=== PATIENT | female | born 1950 | race Caucasian/White ===

== ENCOUNTER → 2019-09-22 12:26 | Outpatient (CLI) | payer MEDICARE, SELFPAY ==
--- NOTE | ~2019-09-22 | XR_ITS ---
XR_CERV2-3V_CR DATE: 09/22/2019 12:42 INDICATION: Neck pain. No injury. TECHNIQUE: AP, open-mouth, odontoid, lateral views COMPARISON: None FINDINGS: There is straightening of the cervical spine. C1 and C2 are normally aligned and the odonto id process is intact. No fracture or dislocation or locked facet. No prevertebral soft tissue swelling. There is mild to moderate degenerative disc disease at approximately 1.4 mm anterolisthesis at C4-5. There is moderate to moderately severe degenerative disease at C5-6 and C6-7. There is uncovertebral joint spurring at C5-6 and C6-7. Degenerative changes are noted at the apophys eal joints. IMPRESSION: Cervical spondylosis Reviewed, dictated and finalized at [facility]. Reviewed, dictated and finalized at location [facility]. S HAND SEWER IMPRESSION: Cervical spondylosis
== END ==
PROVIDERS: PCP Family Medicine; Visit Provider Family Medicine
DX: M47.892 Other spondylosis, cervical region (principal)
CPT/HCPCS: 72040

== ENCOUNTER 2021-09-15 06:01 | Emergency (ER) | payer MEDICARE, SELFPAY ==
--- NOTE | ~2021-09-15 | CT_ITS ---
EXAMINATION: CTA chest PE protocol DATE: 09/15/2021 09:14 INDICATION: Shortness of breath. TECHNIQUE: Computed tomography angiography (CTA) of the chest was performed with 100 mL Omnipaque-350 intravenous contrast timed to evaluate the pulmonary arteries. Coronal maximum intensity projection 3D-reconstructions were created by the technologist. Automated exposure control and iterative reconst ruction technique were employed. The dose-length product was 183.17 mGy-cm. COMPARISON: None. FINDINGS: There is mild scarring at right lung apex. There is mild atelectasis bilaterally. No pleura l effusion. The heart size is normal. There are coronary artery calcifications. No pericardial effusi on. There is no pulmonary embolus. There is a small sliding hiatal hernia. There is a 10 mm low-atten uation mass in the peripheral spleen, likely benign. There is mild thoracic spondylosis. IMPRESSION: 1. No pulmonary embolus. Reviewed, dictated and finalized at location [facility]. TECHNICIAN IMPRESSION: 1. No pulmonary embolus.
[2021-09-15 06:18] VITALS: BP 171/70; PULSE 77; RESP 18; TEMP 36.4; O2SAT 100
--- NOTE | 2021-09-15 06:30 | PC.NURSE ---
Pt much more settled at this time. at bedside. Pt blood preasure 145/93 HR 54. ERMD in to see.
--- NOTE | 2021-09-15 06:45 | ED.ANXIETY ---
HPI - Anxiety General Chief Complaint: Anxiety Stated Complaint: Allergic Reaction to Cancer Drug Source: patient, family and RN notes reviewed Mode of arrival: ambulatory Limitations: no limitations History of Present Illness HPI narrative: Patient states that she woke up middle the night very anxious feeling short of breath tremor in all over. states that she had a pain in her back between her shoulder blades that he massaged but she cleaned it went down her left arm. He says that went away and she fell back asleep and then woke up at 3:00 a.m. with worsening tremors shaking short of breath in a panic. complaint: anxiety, heart racing and shortness of breath Onset (ago): hour(s) (4) Symptoms: dyspnea and palpitations Severity: severe Quality: improving Place: home History of similar episodes: No Provoking factors: medication change (recent osteopenia infusion) Relieving factors: rest Exacerbating factors: nothing Associated symptoms: weakness Related Data Home Medications Medication Instructions Recorded Confirmed calcium carbonate 600 mg-vitamin 1 tablet PO DAILY 07/10/19 09/15/21 D3 20 mcg (800 unit) chewable tablet lysine 500 mg tablet 500 mg PO DAILY 07/10/19 09/15/21 multivit with min-folic 1 tablet PO DAILY 07/10/19 09/15/21 acid-lutein 400 mcg-250 mcg chewable tablet Allergies Allergy/AdvReac Type Severity Reaction Status Date / Time No Known Allergies Allergy Verified 04/05/21 10:17 Review of Systems Review of Systems: All systems reviewed & are unremarkable except as noted in HPI and below Constitutional: Constitutional: Reports weakness Eyes: Eyes: Reports change in vision (not new) Cardiovascular: Cardiovascular: Reports as per HPI Gastrointestinal: Gastrointestinal: Denies nausea and Denies vomiting [facility] Past Medical History Medical History Fracture, patella 2009 Hearing problem Injury, knee Internal hemorrhoids 2012 Invasive ductal carcinoma of breast Osteopenia after menopause Surgical History Surgical History H/O: hysterectomy Total History of partial mastectomy of right breast Family History Family History Sibling Diabetes mellitus Family history of glaucoma Family history of elevated blood lipids Carcinoma of colon Mother Hypertension Family history of Alzheimer's disease Family history of dementia Father Family history of emphysema Other Family history of hypercholesterolemia Family history of mental disorder Malignant neoplasm of prostate Social History Social History (Updated 09/15/21 @ 07:15 by Joselito Snyder MD) Alcohol intake: current Alcohol use details: Occasional Exam Const: General: no acute distress, alert and ill appearing chronically Nutritional Appearance: well nourished and thin Orientation/consciousness: patient oriented x3 HENMT: Head: normal to inspection Ears: external ears normal Face and sinus: normal facial exam Mouth: Yes moist mucous membranes Eyes: Conjunctivae: conjunctivae normal Pupils: Equal, round and reactive pupils present EOM: EOMs intact bilaterally Neck: Neck: normal visual inspection Chest: Chest palpation & inspection: normal inspection of the chest Resp: Effort & Inspection: normal respiratory effort Auscultation: clear to auscultation bilaterally Cardio: Rate: regular rate Rhythm: regular rhythm GI: GI Palp: Yes Soft to palpation and No Tenderness to palpation present (GI) Auscultation: normal bowel sounds Back/Spine/Pelvis: Cervical Spine: cervical ROM normal Thoracic/Lumbar Spine: thoraco-lumbar ROM normal Skin: General skin exam: normal color Rashes: no rashes Neuro: General: patient oriented x3, moves all extremities, no meningeal signs, no focal motor deficits and CN's I
--- NOTE | 2021-09-15 07:04 | PC.NURSE ---
Report to Nurse Colby. Pt remains improved.
--- NOTE | 2021-09-15 07:30 | ECG_ITS ---
Measurements Intervals Watson Rate: 54 P: 100 NM: 146 QRS: 77 QRSD: 98 T: 76 QT: 471 QTc: 449 Interpretive Statements SINUS BRADYCARDIA INCOMPLETE RIGHT BUNDLE BRANCH BLOCK BORDERLINE ECG Electronically Signed On 09-15-2021 8:01:31 UPHOLSTERY TECH by Yonathan Morales D.O.
[2021-09-15 07:47] LABS: Basophils Absolute Auto 0.02 K/mm3 (0.00-0.10); Basophils Percent Auto 0.4 % (0.0-1.0); Eosinophils Absolute Auto 0.21 K/mm3 (0.02-0.50); Eosinophils Percent Auto 4.7 % (1.0-6.0); Hematocrit 39.3 % (35.0-42.0); Hemoglobin 12.7 g/dL (11.7-13.8); Immature Granulocyte Absolute 0.01 K/mm3 (0.00-0.00); Immature Granulocyte Percent A 0.2 % (0.0-0.0); Immature Platelet Fraction Pct 7.1 % (1.0-7.0); Lymphocytes Absolute Auto 1.14 K/mm3 (1.10-4.50); Lymphocytes Percent Auto 25.6 % (18.0-42.0); Mean Corpuscular HGB Conc 32.3 g/dL (32.0-36.0); Mean Corpuscular Volume 86.6 fL (78.0-102.0); Mean Platelet Volume 12.2 fl (9.2-11.8); Monocytes Absolute Auto 0.52 K/mm3 (0.10-0.90); Monocytes Percent Auto 11.7 % (2.0-11.0); Neutrophils Absolute Auto 2.6 K/mm3 (1.7-7.2); Neutrophils Percent Auto 57.4 % (50.0-70.0); Platelet Count Result 136 K/mm3 (150-420); Red Blood Count 4.54 M/mm3 (4.20-5.40); Red Cell Distribution Width 15.2 % (11.6-14.4); White Blood Count 4.5 K/mm3 (4.8-10.8)
[2021-09-15 07:57] LABS: Alanine Aminotransferase 19 U/L (14-59); Albumin Level 3.2 g/dL (3.4-5.0); Alkaline Phosphatase 68 U/L (46-116); Anion Gap 9 mmol/L (8-16); Aspartate Amino Transferase 16 U/L (15-37); Bilirubin,Total 0.5 mg/dL (0.00-1.00); Blood Urea Nitrogen 14 mg/dL (7-18); Calcium 8.8 mg/dL (8.5-10.1); Carbon Dioxide 27 mmol/L (21-32); Chloride 106 mmol/L (98-108); Estimated CRCL calculation 46 ml/min; Estimated Glomerular Filt Rate 59; Glucose 95 mg/dL (70-99); Osmolality Calculated 294 mOsm/kg (285-295); Sodium 142 mmol/L (136-145); Total Protein 6.8 g/dL (6.4-8.2); Troponin I 5.8 ng/L (0.00-60.4)
[2021-09-15 08:22] LABS: Prothrombin Time 10.9 Seconds (9.50-12.10)
[2021-09-15 08:25] LABS: D Dimer 0.51 mg/L (0.19-0.50)
== END 2021-09-15 10:08 | disposition home or self-care (01) ==
PROVIDERS: Emergency Provider Emergency Medicine; PCP Family Medicine
DX: F41.9 Anxiety disorder, unspecified (principal); Z85.3 Personal history of malignant neoplasm of breast
CPT/HCPCS: 36415; 71275; 80053; 84484; 85025; 85055; 85380; 85610; 93005; 99282; 99284; Q9967

== ENCOUNTER 2022-09-25 06:35 | Outpatient (CLI) | payer MEDICARE, SELFPAY ==
--- NOTE | ~2022-09-25 | XR_ITS ---
Supine and upright views of the abdomen Clinical history: Urinary bladder mass Findings: Bowel gas pattern is nonspecific. No evidence for obstruction or free air. No abnormal mass lesion or calcification is seen. Osseous structures are intact. Impression: No significant abnormality is seen. Reviewed, dictated and finalized at [facility]. ACTORY WORKER Impression: No significant abnormality is seen.
--- NOTE | ~2022-09-25 | CT_ITS ---
CT of the Abdomen and Pelvis: Indication: Urinary bladder mass Technique: 2.5 mm axial scans were obtained through the abdomen and pelvis prior to and following in travenous administration of 130 cc of Omnipaque 350. Dose reduction technique was used on this scan b y utilizing automated exposure control and iterative reconstruction technique. The dose-length produc t (DLP) was 1139.47 mGy-cm. Findings: Scans through the lung bases demonstrate linear bibasilar scarring. The liver, spleen, pancreas, gallbladder, adrenals and kidneys are within normal limits. No evidence of aortic aneurysm. No lymphadenopathy. No bowel obstruction or bowel wall thickening. There is no evidence to suggest acute appendicitis. Images through the pelvis were performed. There is a 3.8 cm enhancing intraluminal urinary bladder ma ss towards the right side of the urinary bladder, suspicious for bladder carcinoma until proven other cid. No other adnexal mass seen. No ascites. Impression: 3.8 cm enhancing intraluminal bladder mass, as detailed above, suspicious for bladder neoplasm until proven otherwise. Reviewed, dictated and finalized at location . ERCIAL SPECIALIST Impression: 3.8 cm enhancing intraluminal bladder mass, as detailed above, suspicious for b ladder neoplasm until proven otherwise.
[2022-09-25 07:10] LABS: Estimated Glomerular Filt Rate 49
== END 2022-09-25 06:36 | disposition home or self-care (01) ==
PROVIDERS: PCP Family Medicine; Visit Provider Nurse Practitioner Family
DX: N32.89 Other specified disorders of bladder (principal)
CPT/HCPCS: 74018; 74178; Q9967

== ENCOUNTER 2023-05-31 01:11 | Day surgery (SDC) | payer MEDICARE, SELFPAY ==
[2023-05-18 14:34] VITALS: BMI 24.3
[2023-05-31 06:48] VITALS: BP 147/79; PULSE 62; RESP 20; TEMP 36.1; O2SAT 100; BMI 24.0
[2023-05-31] MEDS: LACTATED RINGERS 1,000 ML 150 ML IV CONT (07:03)
[2023-05-31 07:04] VITALS: BP 147/79; PULSE 62; RESP 20; TEMP 36.1; O2SAT 100
--- NOTE | 2023-05-31 07:11 | PM.HPGS ---
History of Present Illness History of Present Illness Consent: Risks, benefits, and alternatives have been discussed and questions answered. Patient agrees to proceed with procedure. Chief complaint: family hx of colon cancer Narrative: Lisa Lyon is a 73 year old female Presents for screening colonoscopy. Family history is significant her sister has had colon cancer. Patient has had several previous exams with no evidence of polyps or lesions. She continues to feel good. Bowel habits are normal with no bleeding. She presents today for screening colonoscopy. Review of Systems Review of Systems: Review of systems noncontributory. [facility] Past Medical History Medical History (Updated 10/27/22 @ 09:34 by Birdie Quezada NP) Fracture, patella 2009 Hearing problem Injury, knee Internal hemorrhoids 2012 Invasive ductal carcinoma of breast Osteopenia after menopause Urothelial carcinoma of bladder Surgical History Surgical History (Updated 10/27/22 @ 08:59 by Edna Tillman [facility]) H/O: hysterectomy Total History of bladder surgery (~09/2022) History of partial mastectomy of right breast Family History Family History Sibling Diabetes mellitus Family history of glaucoma Family history of elevated blood lipids Carcinoma of colon Mother Hypertension Family history of Alzheimer's disease Family history of dementia Father Family history of emphysema Other Family history of hypercholesterolemia Family history of mental disorder Malignant neoplasm of prostate Social History Social History (Updated 10/27/22 @ 09:16 by Edna Tillman [facility]) Social History: Caffeine- none Smoking packs per day: 1 Smoking cigarettes per day: 20.0 Years smoked: 16 Smoking pack-years: 16.00 Smoking status: Former smoker Tobacco type: cigarettes Alcohol intake: current Alcohol use details: Occasional Substance use: never Substance use type: does not use Lack of Transportation: No Lack of Food: Never True Current Housing: I Have Housing Concerned About Future Housing: No Difficulty Paying Gas/Electric Bills: No Difficulty Paying for Meds: No Currently Unemployed: No Education: Trade/Vocational Certificate Difficulty w/ Childcare or Family Care: No Living arrangements: with family Spiritual care concerns: No Meds Home Medications and Allergies Home Medications Medication Instructions Recorded Confirmed Type calcium carbonate 600 mg-vitamin 1 tablet PO DAILY 07/10/19 05/18/23 History D3 20 mcg (800 unit) chewable tablet (Caltrate 600 plus D) lysine 500 mg tablet 500 mg PO DAILY 07/10/19 05/18/23 History multivit with min-folic 1 tablet PO DAILY 07/10/19 05/18/23 History acid-lutein 400 mcg-250 mcg chewable tablet (Centrum Silver) anastrozole 1 mg tablet 1 mg PO DAILY 10/25/21 05/18/23 History lovastatin 40 mg tablet 40 mg PO DAILY #90 tabs 05/15/23 05/18/23 Rx Allergies Allergy/AdvReac Type Severity Reaction Status Date / Time No Known Allergies Allergy Verified 05/18/23 14:34 Vital Signs Vital Signs - 24 hr 05/31/23 06:48 05/31/23 07:04 Temperature 97.0 F L 97.0 F L Pulse Rate 62 62 Respiratory Rate 20 20 Blood Pressure 147/79 H 147/79 H Pulse Oximetry 100 100 Oxygen Delivery Room Air Room Air Exam Narrative: Physical exam reveals patient to be alert. Vital signs stable. HEENT exam is unremarkable. Patient is anicteric. Lungs are clear to auscultation and percussion. Heart is without murmur or extra sounds. Abdomen bowel sounds are present soft nontender with no organomegaly. Digital external rectal exam is normal. Assessment and Plan Assessment and plan (1) Screening for colon cancer: Code(s): Z12.11 - Encounter for screening for malignant neoplasm of colon Status: Acute Assessment and Plan: P
--- NOTE | 2023-05-31 07:52 | WPDANESEPPF ---
Anes - Initial Pre Proc Eval Procedure: Operation Date: 05/31/23 08:00 Proposed Procedures p Screening Colonoscopy - Joselito Desai MD Date/Time: 05/31/23 07:52 Surgeon: Joselito Desai MD Pre Op Diagnosis: family hx of colon cancer Patient Data Age: 73 Gender: F Height: 1.68 m Weight: 67.4 kg Last Vital Signs Temp 97.0 F L 05/31/23 07:04 Pulse 62 05/31/23 07:04 Resp 20 05/31/23 07:04 BP 147/79 H 05/31/23 07:04 Pulse Ox 100 05/31/23 07:04 O2 Del Method Room Air 05/31/23 07:04 Allergies Allergy/AdvReac Type Severity Reaction Status Date / Time No Known Allergies Allergy Verified 05/18/23 14:34 Home Medications Medication Instructions Recorded Confirmed Type calcium carbonate 600 mg-vitamin 1 tablet PO DAILY 07/10/19 05/18/23 History D3 20 mcg (800 unit) chewable tablet (Caltrate 600 plus D) lysine 500 mg tablet 500 mg PO DAILY 07/10/19 05/18/23 History multivit with min-folic 1 tablet PO DAILY 07/10/19 05/18/23 History acid-lutein 400 mcg-250 mcg chewable tablet (Centrum Silver) anastrozole 1 mg tablet 1 mg PO DAILY 10/25/21 05/18/23 History lovastatin 40 mg tablet 40 mg PO DAILY #90 tabs 05/15/23 05/18/23 Rx Patient hx anesthesia problems: none Family hx anesthesia problems: none Results Review: All pre-operative results and documents have been reviewed as part of the pre-operative evaluation. [facility] Past Medical History Medical History (Updated 10/27/22 @ 09:34 by Birdie Quezada NP) Fracture, patella 2009 Hearing problem Injury, knee Internal hemorrhoids 2013 Invasive ductal carcinoma of breast Osteopenia after menopause Urothelial carcinoma of bladder Surgical History Surgical History (Updated 10/27/22 @ 08:59 by Edna Tillman CMA) H/O: hysterectomy Total History of bladder surgery (~09/2022) History of partial mastectomy of right breast Family History Family History Sibling Diabetes mellitus Family history of glaucoma Family history of elevated blood lipids Carcinoma of colon Mother Hypertension Family history of Alzheimer's disease Family history of dementia Father Family history of emphysema Other Family history of hypercholesterolemia Family history of mental disorder Malignant neoplasm of prostate Social History Social History (Updated 10/27/22 @ 09:16 by Edna Tillman [facility]) Social History: Caffeine- none Smoking packs per day: 1 Smoking cigarettes per day: 20.0 Years smoked: 16 Smoking pack-years: 16.00 Smoking status: Former smoker Tobacco type: cigarettes Alcohol intake: current Alcohol use details: Occasional Substance use: never Substance use type: does not use Lack of Transportation: No Lack of Food: Never True Current Housing: I Have Housing Concerned About Future Housing: No Difficulty Paying Gas/Electric Bills: No Difficulty Paying for Meds: No Currently Unemployed: No Education: Trade/Vocational Certificate Difficulty w/ Childcare or Family Care: No Living arrangements: with family Spiritual care concerns: No Anes - Eval Final PreProcedure Day of Procedure 05/31/23 07:52 Patient weight: normal Heart: regular rate and rhythm Lungs: clear to auscultation Airway: Mallampati scale class II Neurological: alert and oriented Last oral intake: >/= 8 hours ASA classification: III Emergent: no Anesthetic plan: proceed Anesthesia type and monitoring: general GIVS and standard monitoring Results Review: All pre-operative results and documents have been reviewed as part of the pre-operative evaluation. Informed Consent: The patient's anesthetic plan and its attendant risks and benefits were discussed with the patient/family/POA. Questions were solicited and answers provided to the satisfaction of the patient/family/POA.
[2023-05-31 08:19] VITALS: BP 106/60; PULSE 62; RESP 12; O2SAT 100
[2023-05-31 08:29] VITALS: BP 112/67; PULSE 62; RESP 16; O2SAT 100
[2023-05-31 08:39] VITALS: BP 124/70; PULSE 61; RESP 14; O2SAT 100
== END 2023-05-31 08:44 | disposition home or self-care (01) ==
PROVIDERS: PCP Family Medicine; Visit Provider Internal Medicine Gastroenterology
PROC: 0DJD8ZZ Inspection of Lower Intestinal Tract, Via Natural or Artificial Opening Endoscopic (ICD-10-PCS; CPT 45378; principal; 2023-05-31 08:00)
DX: Z12.11 Encounter for screening for malignant neoplasm of colon (principal); K63.5 Polyp of colon; K64.8 Other hemorrhoids; K57.30 Diverticulosis of large intestine without perforation or abscess without bleeding; Z80.0 Family history of malignant neoplasm of digestive organs; Z79.811 Long term (current) use of aromatase inhibitors; Z85.3 Personal history of malignant neoplasm of breast; Z87.891 Personal history of nicotine dependence
CPT/HCPCS: 45385; 88305; J2704; J7120